=== PATIENT | male | born 1950 | race Caucasian/White ===

== ENCOUNTER 2021-06-01 12:32 | Inpatient (IN) | payer MEDICARE ==
[~2021-06-01] VITALS: Ht 177.8 cm; Wt 101.9 kg
[2021-06-01] MEDS ORDERED: SODIUM CHLORIDE 0.9% 1000ML BAG (SEPSIS BOLUS) IV ONE (13:45)
[2021-06-01] MEDS ORDERED: PIPERACILLIN/TAZ 3.375G PREMIX 50 ML IV ONE (13:45)
[2021-06-01] MEDS ORDERED: VANCOMYCIN 1 G PREMIX 200 ML IV ONE (13:45)
[2021-06-01 14:13] LABS: BASOPHILS % 0.4 % (0.0-2.0); EOSINOPHILS % 1.7 % (0.0-5.0); HEMATOCRIT. 53.9 % (42.0-52.0); LYMPHOCYTES % 7.3 % (20.0-50.0); MEAN CORPUSCULAR HEMOGLOBIN 32.2 pg (28.0-32.0); MEAN CORPUSCULAR VOLUME 96.1 fL (80.0-94.0); MEAN PLATELET VOLUME 9.7 fl (7.4-10.4); NEUTROPHILS % 84.6 % (40.0-76.0); PLATELET 357 x1000/uL (130-400); RED BLOOD CELL COUNT 5.61 mill/uL (4.7-6.1)
[2021-06-01 14:22] LABS: CHLORIDE 112 mEq/L (98-107)
[2021-06-01 14:33] LABS: CREATINE KINASE 517 IU/L (39-308)
[2021-06-01 14:37] LABS: INR 1.6; PROTHROMBIN TIME 16.3 sec (9.6-11.0)
[2021-06-01 17:18] LABS: CLARITY URINE TURBID (CLEAR); COLOR URINE DK YELLOW (YELLOW); KETONES URINE NEGATIVE (NEGATIVE); LEUKOCYTE ESTERASE URINE 3+ (NEGATIVE); NITRITE URINE POSITIVE (NEGATIVE); OCCULT BLOOD URINE 2+ (NEGATIVE); PH URINE 5.5 (4.5-8.0); PROTEIN URINE TRACE (NEGATIVE); SPECIFIC GRAVITY URINE 1.021 (1.005-1.030)
[2021-06-01] MEDS ORDERED: HYDROCODONE/ACETAMINOPHEN 5/325MG TABLET PO PRN (17:45)
[2021-06-01] MEDS ORDERED: ONDANSETRON HCL 4MG/2ML INJ IV PRN (17:45)
[2021-06-01] MEDS ORDERED: NALOXONE HCL 0.4MG/ML VIAL IV PRN (17:45)
[2021-06-01] MEDS ORDERED: VANCOMYCIN 1 G PREMIX 200 ML IV SCH (17:45)
[2021-06-01] MEDS ORDERED: IPRATROPIUM/ALBUTEROL 0.5-3(2.5)MG/3ML NEB HHN PRN (17:45)
[2021-06-01 17:53] LABS: BG CARBOXYHEMOGLOBIN 0.5 % (0.5-1.5); BG DEOXYHEMOGLOBIN 4.1 % (0.0-5.0); BG HCO3 ACT 22.9 mmol/L (22.0-26.0); BG METHEMOGLOBIN 0.3 % (0.0-1.5); BG OXYGEN SATURATION 95.9 % (92.0-98.5); BG OXYHEMOGLOBIN 95.1 % (94.0-97.0); BG PCO2 32.8 mmHg (35.0-45.0); BG PH 7.462 (7.350-7.450); BG PO2 81.8 mmHg (75.0-100.0); BG SAMPLE SITE RIGHT RADIAL; BG TOTAL HEMOGLOBIN 16.4 g/dL (12.0-18.0); BG VENT MODE ROOM AIR
[2021-06-01] MEDS ORDERED: PIPERACILLIN/TAZOBACTAM 3.375 G in DEXTROSE 5% WATER 50 ML IV SCH (21:00)
[2021-06-01] MEDS ORDERED: SODIUM CHLORIDE 0.45% 1,000 ML IV ONE (22:15)
[2021-06-01 22:41] LABS: CREATINE KINASE MB FRACTION 8.5 ng/mL (0.5-3.6)
[2021-06-02 04:30] VITALS: BP 148/91
[2021-06-02] MEDS ORDERED: FURO40TA5 PO (05:01)
[2021-06-02] MEDS ORDERED: ATOR20TA65 PO (05:01)
[2021-06-02] MEDS ORDERED: NADO20TA3 PO (05:01)
[2021-06-02] MEDS ORDERED: GLIP10TA10 PO (05:01)
[2021-06-02] MEDS ORDERED: METF-416 PO (05:01)
[2021-06-02] MEDS ORDERED: SITA100T11 PO (05:01)
[2021-06-02] MEDS: PIPERACILLIN/TAZOBACTAM 3.375 G in DEXTROSE 5% WATER 50 ML IV SCH ×3 (06:33→19:15)
[2021-06-02 07:47] LABS: BASOPHILS % 0.2 % (0.0-2.0); EOSINOPHILS % 1.9 % (0.0-5.0); HEMATOCRIT. 47.3 % (42.0-52.0); LYMPHOCYTES % 7.6 % (20.0-50.0); MEAN CORPUSCULAR HEMOGLOBIN 32.6 pg (28.0-32.0); MEAN CORPUSCULAR VOLUME 96.3 fL (80.0-94.0); MEAN PLATELET VOLUME 9.1 fl (7.4-10.4); NEUTROPHILS % 83.3 % (40.0-76.0); PLATELET 246 x1000/uL (130-400); RED BLOOD CELL COUNT 4.91 mill/uL (4.7-6.1); RED CELL DISTRIBUTION WIDTH 15.5 % (11.6-14.6)
[2021-06-02 07:57] LABS: CHLORIDE 120 mEq/L (98-107)
[2021-06-02 08:00] VITALS: BP 147/75
[2021-06-02 08:10] LABS: LDL CHOLESTEROL 104 mg/dL (5-100)
[2021-06-02 08:12] LABS: CREATINE KINASE 231 IU/L (39-308); CREATINE KINASE MB FRACTION 6.1 ng/mL (0.5-3.6); HDL CHOLESTEROL 21 mg/dL (40-59); T4 FREE 1.29 ng/dL (0.76-1.46)
[2021-06-02] MEDS: VANCOMYCIN 1 G PREMIX 200 ML IV SCH (10:01)
[2021-06-02 12:00] VITALS: BP 144/82
[2021-06-02] MEDS ORDERED: HYDRALAZINE 20MG/ML VIAL IV PRN (14:45)
[2021-06-02] MEDS ORDERED: LACTULOSE 20G/30ML UDC PO PRN (14:45)
[2021-06-02] MEDS: DEXTROSE 5% WATER 1,000 ML IV SCH (15:47)
[2021-06-02] MEDS: PANTOPRAZOLE 40MG DR TABLET PO SCH (15:48)
[2021-06-02 18:30] VITALS: BP 131/74
[2021-06-02] MEDS: ENOXAPARIN 100MG/ML SYR SUBCUT SCH (19:16)
[2021-06-02 20:00] VITALS: BP 125/82
[2021-06-03] VITALS: BP 126/80
[2021-06-03] MEDS: VANCOMYCIN 1 G PREMIX 200 ML IV SCH (01:26)
[2021-06-03] MEDS: ACETAMINOPHEN 325MG TABLET PO PRN (02:30)
[2021-06-03] MEDS: DEXTROSE 5% WATER 1,000 ML IV SCH ×2 (03:44→16:10)
[2021-06-03 04:00] VITALS: BP 137/90
[2021-06-03] MEDS: PIPERACILLIN/TAZOBACTAM 3.375 G in DEXTROSE 5% WATER 50 ML IV SCH ×3 (05:15→11:19)
[2021-06-03] MEDS: ENOXAPARIN 100MG/ML SYR SUBCUT SCH (05:25)
[2021-06-03 08:00] VITALS: BP 125/71
[2021-06-03 08:24] LABS: BASOPHILS % 0.6 % (0.0-2.0); EOSINOPHILS % 3.6 % (0.0-5.0); HEMATOCRIT. 44.1 % (42.0-52.0); HEMOGLOBIN. 14.6 g/dL (14.0-18.0); LYMPHOCYTES % 10.4 % (20.0-50.0); MEAN CORPUSCULAR VOLUME 96.6 fL (80.0-94.0); MEAN PLATELET VOLUME 9.5 fl (7.4-10.4); MONOCYTES % 7.6 % (2.0-8.0); NEUTROPHILS % 77.8 % (40.0-76.0); PLATELET 230 x1000/uL (130-400); RED BLOOD CELL COUNT 4.57 mill/uL (4.7-6.1); RED CELL DISTRIBUTION WIDTH 15.4 % (11.6-14.6)
[2021-06-03 08:46] LABS: CHLORIDE 114 mEq/L (98-107)
[2021-06-03] MEDS: PANTOPRAZOLE 40MG DR TABLET PO SCH (08:46)
[2021-06-03] MEDS: FOLIC ACID 1MG TABLET PO SCH (08:46)
[2021-06-03] MEDS: MULTIVITAMINS,THER W-MINERALS TABLET PO SCH (08:46)
[2021-06-03] MEDS: THIAMINE HCL 100MG TABLET PO SCH (08:46)
[2021-06-03 08:47] LABS: HEPATITIS B SURFACE ANTIGEN NEGATIVE
[2021-06-03 09:17] LABS: HEPATITIS A AB IGM NEGATIVE (NEGATIVE)
[2021-06-03] MEDS ORDERED: POTASSIUM CHLORIDE 20MEQ TABLET SR PO NR (10:30)
[2021-06-03 12:00] VITALS: BP 117/84
[2021-06-03] MEDS ORDERED: LIDOCAINE HCL 1% 20ML VIAL (Pyxis) INJ ONE (13:22)
[2021-06-03 16:00] VITALS: BP 131/77
[2021-06-03] MEDS ORDERED: VANCOMYCIN 1 G PREMIX 200 ML IV SCH (16:00)
[2021-06-03] MEDS ORDERED: LEVOFLOXACIN 500MG PREMIX 100 ML IV SCH (17:30)
[2021-06-03] MEDS: BACITRACIN 15GM TUBE TOP SCH (18:03)
[2021-06-03 20:00] VITALS: BP 116/74
[2021-06-04] VITALS: BP 120/75
[2021-06-04] MEDS: DEXTROSE 5% WATER 1,000 ML IV SCH ×2 (02:00→21:02)
[2021-06-04 04:00] VITALS: BP 115/62
[2021-06-04] MEDS: PANTOPRAZOLE 40MG DR TABLET PO SCH (05:54)
[2021-06-04 08:00] VITALS: BP 116/70
[2021-06-04 08:02] LABS: BASOPHILS % 0.5 % (0.0-2.0); EOSINOPHILS % 3.3 % (0.0-5.0); HEMATOCRIT. 44.1 % (42.0-52.0); HEMOGLOBIN. 14.6 g/dL (14.0-18.0); LYMPHOCYTES % 11.4 % (20.0-50.0); MEAN CORPUSCULAR HEMOGLOBIN 32.4 pg (28.0-32.0); MEAN CORPUSCULAR VOLUME 97.6 fL (80.0-94.0); MEAN PLATELET VOLUME 9.5 fl (7.4-10.4); MONOCYTES % 8.5 % (2.0-8.0); NEUTROPHILS % 76.3 % (40.0-76.0); PLATELET 179 x1000/uL (130-400); RED BLOOD CELL COUNT 4.52 mill/uL (4.7-6.1); RED CELL DISTRIBUTION WIDTH 15.2 % (11.6-14.6)
[2021-06-04 08:46] LABS: CHLORIDE 110 mEq/L (98-107)
[2021-06-04] MEDS: THIAMINE HCL 100MG TABLET PO SCH (08:47)
[2021-06-04] MEDS: MULTIVITAMINS,THER W-MINERALS TABLET PO SCH (08:47)
[2021-06-04] MEDS: FOLIC ACID 1MG TABLET PO SCH (08:47)
[2021-06-04] MEDS: BACITRACIN 15GM TUBE TOP SCH (09:01)
[2021-06-04] MEDS ORDERED: POTASSIUM CHLORIDE 20MEQ TABLET SR PO NR (15:00)
[2021-06-04 16:00] VITALS: BP 121/74
[2021-06-04] MEDS: LEVOFLOXACIN 500MG TABLET PO SCH (17:08)
[2021-06-04 20:00] VITALS: BP 125/66
[2021-06-04] MEDS: FAMOTIDINE 20MG TABLET PO SCH (21:02)
[2021-06-05] VITALS: BP 126/76
[2021-06-05 04:00] VITALS: BP 113/71
[2021-06-05] MEDS: FAMOTIDINE 20MG TABLET PO SCH ×2 (06:44→22:44)
[2021-06-05 08:00] VITALS: BP 110/60
[2021-06-05] MEDS: DEXTROSE 5% WATER 1,000 ML IV SCH (08:53)
[2021-06-05] MEDS: MULTIVITAMINS,THER W-MINERALS TABLET PO SCH (08:53)
[2021-06-05] MEDS: APIXABAN 5 MG TABLET PO SCH ×2 (08:53→22:45)
[2021-06-05] MEDS: FOLIC ACID 1MG TABLET PO SCH (08:53)
[2021-06-05] MEDS: THIAMINE HCL 100MG TABLET PO SCH (08:53)
[2021-06-05] MEDS: BACITRACIN 15GM TUBE TOP SCH (08:58)
[2021-06-05 09:43] LABS: BASOPHILS % 0.8 % (0.0-2.0); EOSINOPHILS % 3.2 % (0.0-5.0); HEMATOCRIT. 45.1 % (42.0-52.0); HEMOGLOBIN. 15.4 g/dL (14.0-18.0); LYMPHOCYTES % 10.1 % (20.0-50.0); MEAN CORPUSCULAR HEMOGLOBIN 32.6 pg (28.0-32.0); MEAN CORPUSCULAR VOLUME 95.7 fL (80.0-94.0); NEUTROPHILS % 77.9 % (40.0-76.0); PLATELET 180 x1000/uL (130-400); RED BLOOD CELL COUNT 4.71 mill/uL (4.7-6.1); RED CELL DISTRIBUTION WIDTH 15.1 % (11.6-14.6)
[2021-06-05 09:52] LABS: CHLORIDE 104 mEq/L (98-107)
[2021-06-05 12:00] VITALS: BP 118/65
[2021-06-05 16:00] VITALS: BP 122/64
[2021-06-05] MEDS: LEVOFLOXACIN 500MG TABLET PO SCH (17:43)
[2021-06-05 20:00] VITALS: BP 99/63
[2021-06-06] VITALS: BP 101/70
[2021-06-06 04:00] VITALS: BP 110/80
[2021-06-06] MEDS: FAMOTIDINE 20MG TABLET PO SCH ×2 (05:56→21:08)
[2021-06-06 08:00] VITALS: BP 114/70
[2021-06-06 08:32] LABS: BASOPHILS % 0.8 % (0.0-2.0); EOSINOPHILS % 2.8 % (0.0-5.0); HEMATOCRIT. 42.7 % (42.0-52.0); HEMOGLOBIN. 14.4 g/dL (14.0-18.0); LYMPHOCYTES % 11.7 % (20.0-50.0); MEAN CORPUSCULAR HEMOGLOBIN 32.2 pg (28.0-32.0); MEAN CORPUSCULAR VOLUME 95.5 fL (80.0-94.0); MEAN PLATELET VOLUME 9.3 fl (7.4-10.4); MONOCYTES % 9.1 % (2.0-8.0); NEUTROPHILS % 75.6 % (40.0-76.0); PLATELET 182 x1000/uL (130-400); RED BLOOD CELL COUNT 4.47 mill/uL (4.7-6.1); RED CELL DISTRIBUTION WIDTH 14.6 % (11.6-14.6)
[2021-06-06 08:34] LABS: CHLORIDE 106 mEq/L (98-107)
[2021-06-06] MEDS: MULTIVITAMINS,THER W-MINERALS TABLET PO SCH (11:23)
[2021-06-06] MEDS: APIXABAN 5 MG TABLET PO SCH ×2 (11:23→21:08)
[2021-06-06] MEDS: BACITRACIN 15GM TUBE TOP SCH (11:23)
[2021-06-06] MEDS: THIAMINE HCL 100MG TABLET PO SCH (11:23)
[2021-06-06] MEDS: FOLIC ACID 1MG TABLET PO SCH (11:24)
[2021-06-06 12:00] VITALS: BP 114/77
[2021-06-06 16:00] VITALS: BP 122/61
[2021-06-06] MEDS: METRONIDAZOLE 500MG TABLET PO SCH ×2 (17:30→21:08)
[2021-06-06] MEDS: VANCOMYCIN HCL 1000 MG/20 ML ORAL PO SCH (17:31)
[2021-06-06 20:00] VITALS: BP 112/79
[2021-06-07] VITALS: BP 144/83
[2021-06-07] MEDS: VANCOMYCIN HCL 1000 MG/20 ML ORAL PO SCH ×5 (00:16→22:28)
[2021-06-07 04:00] VITALS: BP 127/82
[2021-06-07 06:16] LABS: BASOPHILS % 0.7 % (0.0-2.0); EOSINOPHILS % 2.7 % (0.0-5.0); HEMATOCRIT. 41.9 % (42.0-52.0); HEMOGLOBIN. 14.4 g/dL (14.0-18.0); LYMPHOCYTES % 12.5 % (20.0-50.0); MEAN CORPUSCULAR HEMOGLOBIN 32.9 pg (28.0-32.0); MEAN PLATELET VOLUME 9.7 fl (7.4-10.4); NEUTROPHILS % 74.1 % (40.0-76.0); PLATELET 169 x1000/uL (130-400); RED BLOOD CELL COUNT 4.37 mill/uL (4.7-6.1); RED CELL DISTRIBUTION WIDTH 15.1 % (11.6-14.6)
[2021-06-07] MEDS: METRONIDAZOLE 500MG TABLET PO SCH ×3 (06:21→21:35)
[2021-06-07] MEDS: FAMOTIDINE 20MG TABLET PO SCH ×2 (06:22→21:32)
[2021-06-07] MEDS: ACETAMINOPHEN 325MG TABLET PO PRN (06:39)
[2021-06-07 06:57] LABS: CHLORIDE 104 mEq/L (98-107)
[2021-06-07 08:18] VITALS: BP 113/72
[2021-06-07] MEDS: APIXABAN 5 MG TABLET PO SCH ×2 (08:37→21:32)
[2021-06-07] MEDS: MULTIVITAMINS,THER W-MINERALS TABLET PO SCH (08:37)
[2021-06-07] MEDS: FOLIC ACID 1MG TABLET PO SCH (08:37)
[2021-06-07] MEDS: THIAMINE HCL 100MG TABLET PO SCH (08:37)
[2021-06-07] MEDS: BACITRACIN 15GM TUBE TOP SCH (08:38)
[2021-06-07 12:00] VITALS: BP 111/75
[2021-06-07] MEDS ORDERED: HYDRALAZINE 10 MG in SODIUM CHLORIDE 0.9% 49.5 ML IV PRN (15:45)
[2021-06-07 16:00] VITALS: BP 122/80
[2021-06-07 20:00] VITALS: BP 130/85
[2021-06-08] VITALS: BP 125/82
[2021-06-08 04:00] VITALS: BP 121/71
[2021-06-08] MEDS: FAMOTIDINE 20MG TABLET PO SCH (06:28)
[2021-06-08] MEDS: METRONIDAZOLE 500MG TABLET PO SCH ×2 (06:28→14:41)
[2021-06-08] MEDS: VANCOMYCIN HCL 1000 MG/20 ML ORAL PO SCH ×2 (06:28→12:38)
[2021-06-08 08:00] VITALS: BP 135/78
[2021-06-08] MEDS: BACITRACIN 15GM TUBE TOP SCH (08:45)
[2021-06-08] MEDS: FOLIC ACID 1MG TABLET PO SCH (08:45)
[2021-06-08] MEDS: THIAMINE HCL 100MG TABLET PO SCH (08:45)
[2021-06-08] MEDS: APIXABAN 5 MG TABLET PO SCH (08:45)
[2021-06-08] MEDS: MULTIVITAMINS,THER W-MINERALS TABLET PO SCH (08:45)
[2021-06-08 12:00] VITALS: BP 156/82
[2021-06-08] MEDS: ACETAMINOPHEN 325MG TABLET PO PRN (15:07)
[2021-06-08 15:41] VITALS: BP 135/78
[2021-06-09] MEDS ORDERED: ASCORBIC ACID 500 MG TABLET PO SCH (09:00)
[2021-06-09] MEDS ORDERED: ZINC SULFATE 220 MG ( 50 ) CAPSULE PO SCH (09:00)
== END 2021-06-08 16:20 | DRG 853 ==
LOC: ER 12:39 → MICUSO 15:05 → 7WST 06-02 01:43 → 7EST 06-03 10:15 → 6EST 06-07 11:58
PROVIDERS: ADMIT Internal Medicine; ATTEND Internal Medicine
PROC: 02HV33Z Insertion of Infusion Device into Superior Vena Cava, Percutaneous Approach (ICD-10-PCS; 2021-06-03)
PROC: B5181ZA Fluoroscopy of Superior Vena Cava using Low Osmolar Contrast, Guidance (ICD-10-PCS; 2021-06-03)
PROC: 0JB70ZZ Excision of Back Subcutaneous Tissue and Fascia, Open Approach (ICD-10-PCS; principal; 2021-06-04)
DX: A41.51 Sepsis due to Escherichia coli [E. coli] (principal); K85.90 Acute pancreatitis without necrosis or infection, unspecified; D68.59 Other primary thrombophilia; E87.2 Acidosis; G93.40 Encephalopathy, unspecified; I48.92 Unspecified atrial flutter; N17.9 Acute kidney failure, unspecified; N39.0 Urinary tract infection, site not specified; M62.82 Rhabdomyolysis; E11.9 Type 2 diabetes mellitus without complications; F10.10 Alcohol abuse, uncomplicated; I48.91 Unspecified atrial fibrillation; K57.90 Diverticulosis of intestine, part unspecified, without perforation or abscess without bleeding; K74.60 Unspecified cirrhosis of liver; R62.7 Adult failure to thrive; Z20.822 Contact with and (suspected) exposure to COVID-19; L89.152 Pressure ulcer of sacral region, stage 2; E86.0 Dehydration; Y90.9 Presence of alcohol in blood, level not specified; I10 Essential (primary) hypertension; Z79.84 Long term (current) use of oral hypoglycemic drugs; Z79.899 Other long term (current) drug therapy; Z68.32 Body mass index [BMI] 32.0-32.9, adult
CPT/HCPCS: 36415; 36573; 36600; 71045; 74176; 78582; 80048; 80053; 80061; 80202; 80320; 81003; 82140; 82270; 82375; 82550; 82553; 82805; 83605; 83880; 84145; 84439; 84443; 84484; 85025; 85379; 86705; 86706; 86709; 86803; 87015; 87045; 87077; 87186; 87340; 87427; 87449; 89055; 93005; 93306; 93970; 97116; 97162; 99291; A6261; A9558; C1725; J1650; J1956; J2543; J3370; J3490; J7030; J7040; J7042; J7060; J7070; U0003; U0005; G0480